=== PATIENT | female | born 1935 | race Caucasian/White ===

== ENCOUNTER 2017-04-20 09:45 | Inpatient (IN) ==
[2017-04-20 10:06] LABS: MANUAL DIFF NEEDED? NO
[2017-04-20 10:14] LABS: BASO% 0.2 % (0.0-0.8); EOS# 0.04 X1000 (0.0-0.7); EOS% 0.4 % (0.0-10.0); HEMATOCRIT 45.1 % (37.0-47.0); HEMOGLOBIN 15.3 g/dL (12.0-16.0); IMM GRAN# 0.02 X1000 (0.0-0.04); IMM GRAN% 0.2 % (0.0-0.5); LYMPH# 4.06 X1000 (1.2-3.4); LYMPH% 36.4 % (20.5-51.1); MCH 31.3 PG (27-31); MCHC 33.9 g/dL (33-37); MCV 92.2 FL (81-99); MONO# 1.36 X1000 (0.11-0.59); MONO% 12.2 % (1.7-9.3); MPV 9.8 FL (7.4-10.4); NEUT% 50.6 % (42.2-75.2); PLT 324 X1000 (130-400); RBC 4.89 XMIL (4.2-5.4)
[2017-04-20 10:35] LABS: ALBUMIN 4.2 g/dL (3.5-5.0); CALCIUM 9.3 mg/dL (8.8-10.2); POTASSIUM 3.9 mmol/L (3.5-5.1); TOTAL BILIRUBIN 0.37 mg/dL (0.20-1.00); TOTAL PROTEIN 6.2 g/dL (6.3-8.3)
[2017-04-20 13:00] LABS: INR 0.97; PROTIME 10.2 Seconds (9.2-11.7); PTT 23.9 Seconds (22.0-36.0)
[2017-04-20] MEDS ORDERED: TYLENOL PO PRN (14:06)
[2017-04-20] MEDS ORDERED: ZOFRAN IV PRN (14:06)
[2017-04-20] MEDS: 1/2 NS 1,000 ML IV SCH (15:25)
[2017-04-20] MEDS: LOVENOX SUBQ SCH ×2 (15:30→16:20)
[2017-04-20] MEDS: SINEMET 25/100 PO SCH ×3 (18:00→22:49)
[2017-04-20] MEDS: COUMADIN PO SCH (22:40)
[2017-04-20] MEDS: PLAVIX PO SCH (22:40)
[2017-04-20] MEDS: ARICEPT PO SCH (22:45)
[2017-04-20] MEDS: COREG PO SCH (22:48)
[2017-04-20] MEDS: CYMBALTA PO SCH (22:48)
[2017-04-20] MEDS: REQUIP PO SCH (22:49)
[2017-04-21] MEDS: LOVENOX SUBQ SCH ×2 (05:22→17:08)
[2017-04-21] MEDS: 1/2 NS 1,000 ML IV SCH ×2 (05:23→22:33)
[2017-04-21] MEDS: SYNTHROID PO SCH (06:43)
[2017-04-21] MEDS: SINEMET 25/100 PO SCH ×4 (06:43→21:54)
[2017-04-21 07:18] LABS: MANUAL DIFF NEEDED? NO
[2017-04-21 07:28] LABS: INR 1.07; PROTIME 11.3 Seconds (9.2-11.7)
[2017-04-21 07:29] LABS: BASO% 0.4 % (0.0-0.8); EOS# 0.18 X1000 (0.0-0.7); EOS% 2.3 % (0.0-10.0); HEMATOCRIT 46.3 % (37.0-47.0); HEMOGLOBIN 15.5 g/dL (12.0-16.0); IMM GRAN# 0.02 X1000 (0.0-0.04); IMM GRAN% 0.3 % (0.0-0.5); LYMPH# 3.12 X1000 (1.2-3.4); LYMPH% 40.1 % (20.5-51.1); MCH 30.8 PG (27-31); MCHC 33.5 g/dL (33-37); MONO# 1.01 X1000 (0.11-0.59); NEUT% 43.9 % (42.2-75.2); PLT 270 X1000 (130-400); RBC 5.03 XMIL (4.2-5.4)
[2017-04-21 08:05] LABS: AGAP 13; ALBUMIN 3.8 g/dL (3.5-5.0); ALKALINE PHOSPHATASE 115 U/L (32-104); BUN 15 mg/dL (8-22); CALCIUM 8.7 mg/dL (8.8-10.2); CHLORIDE 103 mmol/L (98-107); COSMO 281; GOT 16 U/L (10-30); GPT < 5 U/L (10-36); POTASSIUM 3.4 mmol/L (3.5-5.1); SODIUM 140 mmol/L (136-145); TCO2 24 mmol/L (25-35); TOTAL BILIRUBIN 0.48 mg/dL (0.20-1.00); TOTAL PROTEIN 6.4 g/dL (6.3-8.3)
[2017-04-21] MEDS ORDERED: COREG PO SCH (09:00)
[2017-04-21] MEDS ORDERED: REQUIP PO SCH (09:00)
[2017-04-21] MEDS ORDERED: NORVASC PO SCH (09:00)
[2017-04-21] MEDS ORDERED: GLUCOTROL PO SCH (09:00)
[2017-04-21] MEDS ORDERED: PRINIVIL PO SCH (09:00)
[2017-04-21] MEDS ORDERED: CYMBALTA PO SCH (09:00)
[2017-04-21] MEDS: GLUCOTROL PO SCH (09:24)
[2017-04-21] MEDS: CYMBALTA PO SCH ×2 (09:25→20:31)
[2017-04-21] MEDS: COREG PO SCH ×2 (09:25→20:30)
[2017-04-21] MEDS: REQUIP PO SCH ×4 (09:25→20:29)
[2017-04-21] MEDS: PRINIVIL PO SCH (09:25)
[2017-04-21] MEDS: PLAVIX PO SCH (20:29)
[2017-04-21] MEDS: ARICEPT PO SCH (20:31)
[2017-04-21] MEDS: COUMADIN PO SCH (20:31)
[2017-04-22] MEDS: SINEMET 25/100 PO SCH ×5 (06:06→21:12)
[2017-04-22] MEDS: LOVENOX SUBQ SCH ×2 (06:06→17:36)
[2017-04-22] MEDS: SYNTHROID PO SCH (06:06)
[2017-04-22] MEDS: PRINIVIL PO SCH (08:46)
[2017-04-22] MEDS: GLUCOTROL PO SCH (08:46)
[2017-04-22] MEDS: COREG PO SCH ×2 (08:46→20:26)
[2017-04-22] MEDS: REQUIP PO SCH ×4 (08:46→20:26)
[2017-04-22] MEDS: CYMBALTA PO SCH ×2 (08:47→20:26)
[2017-04-22] MEDS: 1/2 NS 1,000 ML IV SCH (12:32)
[2017-04-22] MEDS ORDERED: POTASSIUM CHLORIDE 20% LIQUID PO ONE (16:23)
[2017-04-22] MEDS: COUMADIN PO SCH (20:26)
[2017-04-22] MEDS: ARICEPT PO SCH (20:26)
[2017-04-22] MEDS: PLAVIX PO SCH (20:26)
[2017-04-23] MEDS: 1/2 NS 1,000 ML IV SCH (03:04)
[2017-04-23] MEDS: SINEMET 25/100 PO SCH ×3 (05:51→12:16)
[2017-04-23] MEDS: SYNTHROID PO SCH ×2 (05:51→08:45)
[2017-04-23] MEDS: LOVENOX SUBQ SCH (05:51)
[2017-04-23 08:07] VITALS: BP 169/78
[2017-04-23] MEDS: GLUCOTROL PO SCH (08:41)
[2017-04-23] MEDS: PRINIVIL PO SCH (08:43)
[2017-04-23] MEDS: REQUIP PO SCH ×2 (08:43→12:16)
[2017-04-23] MEDS: CYMBALTA PO SCH (08:45)
[2017-04-23] MEDS: COREG PO SCH (08:45)
[2017-04-23 14:39] LABS: INR 3.51; PROTIME 39.9 Seconds (9.2-11.7)
== END 2017-04-23 15:18 ==
LOC: ED 09:45 → 3N 14:02
PROVIDERS: ATTEND Emergency Medicine